=== PATIENT | female | born 1985 | race Two or more races ===

== ENCOUNTER 2017-04-25 18:37 | Emergency (ER) | payer OTHER ==
[~2017-04-25] VITALS: Ht 157.5 cm; Wt 64.8 kg
[2017-04-25 18:47] VITALS: BP 117/66
[2017-04-25] MEDS ORDERED: prenatal vits (19:21)
[2017-04-25] MEDS ORDERED: LIDOCAINE-MPF 2% ,5ML ONE (19:25)
[2017-04-25] MEDS ORDERED: LIDOCAINE 2%, 20ML SQ ONE (19:30)
== END 2017-04-25 20:27 | disposition home or self-care (01) ==
LOC: ED 20:21
DX: O26.892 Other specified pregnancy related conditions, second trimester (principal); K04.7 Periapical abscess without sinus; Z3A.19 19 weeks gestation of pregnancy
CPT/HCPCS: 41800; 99284; J3490